=== PATIENT | male | born 1995 | race Hispanic/Latino ===

== ENCOUNTER → 2023-04-12 | Emergency (ER) | payer SELFPAY ==
[~2023-04-12] MED LIST: KETOROLAC 30 MG/ML INJ ONE; LIDOCAINE 1% 20 ML MDV ONE; TDAP (DIPHTH,PERTUSS(ACELL),TET VAC) 0.5 ML VIAL IMVAC ONE
--- NOTE | 2023-04-12 13:23 | RAD REPORT ---
EXAM DESCRIPTION: RAD - Hand Left 3 View - 04/12/2023 1:16 pm CLINICAL HISTORY: PAIN COMPARISON: No comparisons FINDINGS: No evidence of fracture or radiopaque foreign body. No soft tissue gas evident.
--- NOTE | 2023-04-12 14:11 | EDPHYS ---
Physician Documentation [facility] Name: Yana Saenz Age: 27 yrs Sex: Male : 1995 Arrival Date: 04/12/2023 Time: 12:41 Bed 10 Private MD: ED Physician Sameer Alvarez HPI: 04/12 14:11 This 27 yrs old Male presents to ER via Ambulatory with complaints of rt Laceration To Hand. 14:11 Patient presents to the ED with laceration to both hands that occurred just prior to rt arrival. He had a laceration to the right thumb, left third and second digits that occurred just prior to arrival while working on a vehicle. Denies other acute complaints other injuries. Symptoms are mild in severity, no other aggravating elevating factors.. Historical: - Allergies: 12:51 No Known Allergies; nj1 - PMHx: 12:51 None; nj1 - Immunization history:: Client reports receiving the 2nd dose of the Covid vaccine. - Social history:: Smoking status: Patient denies any tobacco usage or history of. - Family history:: not pertinent. ROS: 14:11 Constitutional: Negative for fever, chills, and weight loss, MS/Extremity: Negative for rt injury and deformity, Neuro: Negative for headache, weakness, numbness, tingling, and seizure, Psych: Negative for depression, anxiety, suicide ideation, homicidal ideation, and hallucinations, 14:11 Skin: Positive for laceration(s), Negative for ecchymosis, Exam: 14:11 Musculoskeletal/extremity: Patient has a laceration to the dorsal aspect of the right rt proximal thumb, through dermis only, no foreign bodies identified, it is 1 cm in length. There is a laceration through the dermis with a small amount of subcutaneous fat exposed to the left third digit at the palmar aspect, good cone picker strength, no evidence for tendon injury. There is a this is 2 cm in length, there is a 1 cm laceration to the left index finger, 1 cm in length, through dermis only.. 14:13 Constitutional: This is a well developed, well nourished patient who is awake, alert, rt and in no acute distress. Head/Face: Normocephalic, atraumatic. Skin: Warm, dry with normal turgor. Normal color with no rashes, no lesions, and no evidence of cellulitis. Neuro: Awake and alert, GCS 15, oriented to person, place, time, and situation. Cranial nerves II-XII grossly intact. Motor strength 5/5 in all extremities. Sensory grossly intact. Cerebellar exam normal. Normal gait. Psych: Awake, alert, with orientation to person, place and time. Behavior, mood, and affect are within normal limits. Vital Signs: 12:45 BP 144 / 86; Pulse 84; Resp 18; Temp 98.6(O); Pulse Ox 100% on R/A; Weight 81.65 kg; nj1 Height 6 ft. 1 in. ; Pain 8/10; 12:45 Body Mass Index 23.75 (81.65 kg, 185.42 cm) [facility] 12:45 Pain Scale: Adult nj1 Laceration: 14:13 Wound Repair of 1cm ( 0.4in ) subcutaneous laceration to right hand. Linear shaped.. rt Distal neuro/vascular/tendon intact. Anesthesia: Local anesthetic administered with 1 mls of 1% lidocaine. Wound prep: Copious irrigation. Skin closed with 3 4-0 Prolene using simple sutures and sterile technique. Patient tolerated well. 14:13 Wound Repair of 2cm ( 0.8in ) subcutaneous laceration to palmar aspect of middle rt phalanx of left middle finger. Linear shaped.. Distal neuro/vascular/tendon intact. Anesthesia: Digital block administered with 2 mls of 1% lidocaine. Wound prep: Copious irrigation. Skin closed with 5 4-0 Prolene using simple sutures and sterile technique. Patient tolerated well. 14:13 Wound Repair of 1cm ( 0.4in ) subcutaneous laceration to palmar aspect of distal rt phalanx of left index finger. Linear shaped.. Distal neuro/vascular/tendon intact. Anesthesia: Digital block administered with 2 mls of 1% lidocaine. Wound prep: Copious irrigation. Skin closed with 3 4-0 Prolene using simple sutures and sterile technique. Patient tolerated well. MDM: 12:53 Patient medically screened. rt 14:13 Differential diagnosis: Laceration, superficial, tendon injury, fracture. Data rt reviewed: vital signs, nurses notes, radiologic studies. Independent interpretation of the following test(s) in the Emergency Department X-Ray: My interpretation is No fracture seen on interpretation of x-ray images. Counseling: I had a detailed discussion with the patient and/or guardian regarding the historical points, exam findings, and any diagnostic results supporting the discharge/admit diagnosis, radiology results, the need for further work-up and treatment in the hospital. ED course: There is no clinical evidence to suggest tendon injury, wound appropriate for primary repair.. 04/12 12:59 Order name: Hand Left 3 View XRAY; Complete Time: 13:24 rt 04/12 12:59 Order name: Dressing - Wound; Complete Time: 13:34 rt 04/12 12:59 Order name: Gloves, Sterile; Complete Time: 13:34 rt 04/12 12:59 Order name: Setup Suture Tray; Complete Time: 13:34 rt 04/12 12:59 Order name: Wound Care; Complete Time: 13:34 rt Administered Medications: 13:34 Drug: Boostrix Tdap IM 0.5 ml IM once; as a single dose Route: IM; Site: right deltoid; tl4 14:30 Follow up: Response: No adverse reaction tl4 13:35 Drug: Ketorolac IM 15 mg IM once Route: IM; Site: left ventrogluteal; tl4 14:31 Follow up: Response: No adverse reaction tl4 14:30 Drug: Lidocaine Infiltration (1 %) 5 ml 20 ml Infiltration once; to bedside {Note: tl4 Given by Dr Alvarez.} Volume: 20 ml; Route: Infiltration; Disposition Summary: 04/12/23 14:10 Discharge Ordered Notes: Location: Home rt Problem: new rt Symptoms: have improved rt Condition: Stable rt Diagnosis - Laceration to right thumb rt - Laceration to left third and fifth digits rt - Laceration to left third and second digits rt Followup: rt - With: Private Physician - When: 10 - 14 days - Reason: Staple/Suture removal Discharge Instructions: - Discharge Summary Sheet rt - Laceration Care, Adult rt Forms: - Medication Reconciliation Form rt - Thank You Letter rt - Antibiotic Education rt - Prescription Opioid Use rt - Patient Portal Instructions rt - Leadership Thank You Letter rt Signatures: Dispatcher [employer] Sameer Sparks MD MD rt Arielle Middleton RN RN nj1 Alberto Moctezuma tl4 Corrections: (The following items were deleted from the chart) 14:13 14:11 Patient presents to the ED with laceration to both hands that occurred just prior rt to arrival. He had a laceration to the right thumb, left third and fifth digits that occurred just prior to arrival while working on a vehicle. Denies other acute complaints other injuries. Symptoms are mild in severity, no other aggravating elevating factors.. rt
--- NOTE | 2023-04-12 14:11 | ER ---
Nurse's Notes [facility] Name: Yana Saenz Age: 27 yrs Sex: Male : 1995 Arrival Date: 04/12/2023 Time: 12:41 Bed 10 Private MD: Diagnosis: Laceration to right thumb;Laceration to left third and fifth digits;Laceration to left third and second digits Presentation: 04/12 12:45 Chief complaint: Patient states: Laceration to left 4th digit as well as right thumb nj1 while working on a vehicle about 1 hour ago. Coronavirus screen: Vaccine status: Patient reports receiving the 2nd dose of the covid vaccine. Ebola Screen: Patient denies travel to an Ebola-affected area in the 21 days before illness onset. Initial Sepsis Screen: Does the patient meet any 2 criteria? No. Patient's initial sepsis screen is negative. Does the patient have a suspected source of infection? No. Patient's initial sepsis screen is negative. Risk Assessment: Do you want to hurt yourself or someone else? Patient reports no desire to harm self or others. Onset of symptoms was April 12, 2023. 12:45 Method Of Arrival: Ambulatory nj1 12:45 Acuity: TYRONE 3 nj1 13:01 Complicating Factors: There are no complicating factors for this patient. tl4 Triage Assessment: 13:01 General: Appears in no apparent distress. Behavior is calm, cooperative. tl4 13:37 Injury Description: Laceration sustained to right hand and left hand. tl4 Historical: - Allergies: 12:51 No Known Allergies; nj1 - PMHx: 12:51 None; nj1 - Immunization history:: Client reports receiving the 2nd dose of the Covid vaccine. - Social history:: Smoking status: Patient denies any tobacco usage or history of. - Family history:: not pertinent. Screenin:00 [facility] ED Fall Risk Assessment (Adult) History of falling in the last 3 months, tl4 including since admission No falls in past 3 months (0 pts) Confusion or Disorientation No (0 pts) Intoxicated or Sedated No (0 pts) Impaired Gait No (0 pts) Mobility Assist Device Used No (0 pt) Altered Elimination No (0 pt) Score/Fall Risk Level 0 - 2 = Low Risk Oriented to surroundings. Abuse screen: Denies threats or abuse. Denies injuries from another. Nutritional screening: No deficits noted. Tuberculosis screening: No symptoms or risk factors identified. Assessment: 12:59 Reassessment: No changes from previously documented assessment. Patient and/or family tl4 updated on plan of care and expected duration. Pain level reassessed. Patient is alert, oriented x 3, equal unlabored respirations, skin warm/dry/pink. Pain: Complains of pain in right hand and left hand. Musculoskeletal:. 14:32 Injury Description: Laceration is clean, jagged. tl4 Vital Signs: 12:45 BP 144 / 86; Pulse 84; Resp 18; Temp 98.6(O); Pulse Ox 100% on R/A; Weight 81.65 kg; nj1 Height 6 ft. 1 in. ; Pain 8/10; 12:45 Body Mass Index 23.75 (81.65 kg, 185.42 cm) nj1 12:45 Pain Scale: Adult [facility] ED Course: 12:42 Patient arrived in ED. mg5 12:45 Sameer Alvarez MD is Attending Physician. rt 12:51 Triage completed. nj1 12:52 Arm band placed on right wrist. nj1 12:59 Alberto Moctezuma is Primary Nurse. tl4 13:00 Patient has correct armband on for positive identification. Bed in low position. Call tl4 light in reach. Provided Education on: ED process. 13:01 Assist provider with laceration repair. tl4 13:18 Hand Left 3 View XRAY In Process Unspecified. EDMS 13:35 Wound care: to laceration located on right hand and left hand was cleaned with tl4 irrigated with Patient tolerated well. 13:37 Patient did not have IV access during this emergency room visit. tl4 Administered Medications: 13:34 Drug: Boostrix Tdap IM 0.5 ml IM once; as a single dose Route: IM; Site: right deltoid; tl4 14:30 Follow up: Response: No adverse reaction tl4 13:35 Drug: Ketorolac IM 15 mg IM once Route: IM; Site: left ventrogluteal; tl4 14:31 Follow up: Response: No adverse reaction tl4 14:30 Drug: Lidocaine Infiltration (1 %) 5 ml 20 ml Infiltration once; to bedside {Note: tl4 Given by Dr Alvarez.} Volume: 20 ml; Route: Infiltration; Medication: 13:36 Vaccine Information Statement (VIS) provided today. Questions and/or concerns tl4 addressed. VIS edition date: November 28, 2020. Outcome: 14:10 Discharge ordered by . rt 14:31 Discharged to home ambulatory, tl4 14:31 Condition: stable 14:31 Discharge instructions given to patient, Instructed on discharge instructions, follow up and referral plans. wound care, Demonstrated understanding of instructions, follow-up care, wound care, 14:32 Patient left the ED. tl4 Signatures: Dispatcher [employer] EDNE Sameer Alvarez MD MD rt Arielle Middleton RN RN nj1 Dolly Soares mg5 Alberto Moctezuma tl4
[2023-04-12 16:45] VITALS: BP 144/86; TEMP 98.6; O2SAT 100
== END ==
LOC: ER 12:41
PROC: 0HQGXZZ Repair Left Hand Skin, External Approach (ICD-10-PCS; principal; 2023-04-12)
PROC: 0HQFXZZ Repair Right Hand Skin, External Approach (ICD-10-PCS; 2023-04-12)
DX: S61.011A Laceration without foreign body of right thumb without damage to nail, initial encounter (principal); S61.213A Laceration without foreign body of left middle finger without damage to nail, initial encounter; S61.211A Laceration without foreign body of left index finger without damage to nail, initial encounter
CPT/HCPCS: 96372; 99284; J2001